=== PATIENT | male | born 1995 | race African-American/Black ===

== ENCOUNTER 2019-10-09 11:00 | Emergency (ER) | payer OTHER ==
[2019-10-09 11:06] VITALS: BP 133/64
[2019-10-09] MEDS ORDERED: AZITHROMYCIN 250 MG TABLET PO ONE (11:08)
--- NOTE | 2019-10-09 11:08 | ER Document Report ---
HPI - HPI Time Seen by Provider: 10/09/19 11:01 Onset: Just prior to arrival Quality of pain: No pain, Other - This is a 24-year-old male who presents to the emergency room today stating that he woke up and had some penile discharge in his underwear. Associated Symptoms: None Past Medical History - General Information source: Patient - Social History Smoking Status: Never Smoker Cigarette use (# per day): No Chew tobacco use (# tins/day): No Smoking Education Provided: No Family History: None Vertical Provider Document - CONSTITUTIONAL Agree With Documented VS: Yes Course - Transfer of Care Notes: 10/09/19 11:06 Patient was advised to follow-up with the health department for further testing he was advised of the urine would be sent here for GC and chlamydia he would be treated prophylactically for STD and called in a couple of days should anything come up on the urine that was untreated here in the facility. Although the health department would be a much more thorough testing for all other associated STDs. Discharge - Discharge Clinical Impression: STD (male) Disposition: HOME, SELF-CARE Prescriptions: Doxycycline Hyclate [Vibramycin] 100 mg PO BID 10 Days #20 capsule
[2019-10-09 12:53] LABS: CHLAM PCR NOT DETECTED (NOT DETECT)
== END 2019-10-09 11:22 | disposition home or self-care (01) ==
LOC: ER 11:00
DX: Z20.2 Contact with and (suspected) exposure to infections with a predominantly sexual mode of transmission (principal)
CPT/HCPCS: 87491; 87591; 99283